=== PATIENT | female | born 1940 | race Caucasian/White ===

== ENCOUNTER → 2017-07-16 | Outpatient (CLI) | payer MEDICARE ==
[~2017-07-16] MED LIST: ALBU18HF INH; BIOCLEANSE PO; DOCU-131 PO; ENOX40SY4 SQ; ESTR1PAT25 TD; GABA100C PO; HYDR-3245 PO; LEVO125T PO; MAG30ORA PO; METH500T97 PO; MULT-484 PO; NAPR-856 PO; NAPR500T4 PO; OMEP-110 PO; ONDA4TAB12 PO; POLY17PO3 OP; TEMA15CA PO; TRAM50TA2 PO; TRAZ100T15 PO; ZOLP-413 PO; fentanyl; prestiq PO
== END | disposition home or self-care (01) ==
LOC: CFH 09:28
PROVIDERS: ATTEND Otolaryngology
DX: J32.3 Chronic sphenoidal sinusitis (principal); J34.89 Other specified disorders of nose and nasal sinuses; J34.2 Deviated nasal septum; J30.1 Allergic rhinitis due to pollen
CPT/HCPCS: 70486

== ENCOUNTER 2017-09-06 11:36 | Emergency (ER) | payer MEDICARE ==
[~2017-09-06] VITALS: Ht 165.1 cm; Wt 66.1 kg
[2017-09-06] MEDS ORDERED: SODIUM CHLORIDE FLUSH 10ML SYR IVF ONE (12:30)
[2017-09-06 12:47] LABS: BASOPHILS # (AUTO) 0.08 x10^3/uL (0-0.1); BASOPHILS % (AUTO) 1 % (0-1); EOSINOPHILS # (AUTO) 0.11 x10^3/uL (0-0.4); EOSINOPHILS % (AUTO) 2 % (1-7); LYMPHOCYTES # (AUTO) 1.39 x10^3/uL (1-3.4); LYMPHOCYTES % (AUTO) 20 % (22-44); MD NO; MEAN CORPUSCULAR HEMOGLOBIN 29.1 pg (27.0-34.8); MEAN CORPUSCULAR VOLUME 88.1 fL (80-100); MEAN PLATELET VOLUME 9.6 fL (7.4-10.4); MONOCYTES # (AUTO) 0.62 x10^3/uL (0.2-0.8); MONOCYTES % (AUTO) 9 % (2-9); NEUTROPHILS # (AUTO) 4.64 x10^3/uL (1.8-6.8); NEUTROPHILS % (AUTO) 68 % (42-75); PLATELET COUNT 199 x10^3/uL (130-400); RED BLOOD COUNT 5.33 x10^6/uL (3.82-5.3); RED CELL DISTRIBUTION WIDTH 13.7 % (9.6-15.2)
[2017-09-06 12:58] LABS: ALBUMIN 3.8 g/dL (3.4-5.0); ANION GAP 7 mmol/L (5-15); CALCIUM 8.9 mg/dL (8.5-10.1); CHLORIDE 105 mmol/L (98-107); CREATININE 0.87 mg/dL (0.55-1.02)
[2017-09-06] MEDS ORDERED: OMNIPAQUE 350 MG/ML, 100ML BOTTLE ONE (13:29)
[2017-09-06 14:58] VITALS: BP 141/79
== END 2017-09-06 15:10 | disposition home or self-care (01) ==
LOC: ED 13:46
DX: R06.00 Dyspnea, unspecified (principal); J32.3 Chronic sphenoidal sinusitis; J32.2 Chronic ethmoidal sinusitis
CPT/HCPCS: 36415; 70491; 71045; 80048; 82040; 85025; 99285; Q9967

== ENCOUNTER → 2018-04-29 | Outpatient (CLI) | payer MEDICARE ==
[~2018-04-29] MED LIST changes: +NAPR-685 PO; -NAPR500T4 PO; +TRAZ-137 PO; -TRAZ100T15 PO
== END | disposition home or self-care (01) ==
LOC: CFH 09:42
PROVIDERS: ATTEND Nurse Practitioner Family
DX: M79.672 Pain in left foot (principal); W18.30XA Fall on same level, unspecified, initial encounter

== ENCOUNTER → 2020-07-18 | Outpatient (CLI) | payer MEDICARE ==
[~2020-07-18] MED LIST changes: +ONDA-89 PO; -ONDA4TAB12 PO; +POLY17PO29 OP; -POLY17PO3 OP; -TRAZ-137 PO; +TRAZ-175 PO
== END | disposition home or self-care (01) ==
LOC: CFH 10:03
PROVIDERS: ATTEND Nurse Practitioner Family
DX: Z12.39 Encounter for other screening for malignant neoplasm of breast (principal); Z12.31 Encounter for screening mammogram for malignant neoplasm of breast
CPT/HCPCS: 76641; 77063; 77067

== ENCOUNTER 2020-11-08 23:31 | Emergency (ER) | payer MEDICARE ==
[~2020-11-08] VITALS: Ht 165.1 cm; Wt 69.8 kg
[~2020-11-08 23:31] MED LIST changes: -HYDR-3245 PO; +HYDR1TAB53 PO; -POLY17PO29 OP; +POLY17PO50 OP
--- NOTE | 2020-11-09 00:39 | NUR ---
PA seeing pt in triage while VS reassessed at this time.
[2020-11-09] MEDS ORDERED: MORPHINE SULFATE 4 MG/ML, 1ML IVPush PRN (01:00)
[2020-11-09] MEDS ORDERED: SODIUM CHLORIDE 0.9% 1,000ML IVBOLUS ONE (01:00)
[2020-11-09] MEDS ORDERED: SODIUM CHLORIDE FLUSH 10ML SYR IVF ONE (01:00)
[2020-11-09] MEDS ORDERED: ONDANSETRON 2MG/ML, 2ML IVPush ONE (01:00)
[2020-11-09 01:23] LABS: BASOPHILS % (AUTO) 1 % (0-1); EOSINOPHILS % (AUTO) 0 % (1-7); LYMPHOCYTES % (AUTO) 9 % (22-44); MEAN CORPUSCULAR HEMOGLOBIN 29.7 pg (27.0-34.8); MEAN CORPUSCULAR HGB CONC 33.2 g/dL (32.4-35.8); MEAN PLATELET VOLUME 9.8 fL (7.4-10.4); MONOCYTES % (AUTO) 3 % (2-9); NEUTROPHILS % (AUTO) 86 % (42-75); PLATELET COUNT 200 x10^3/uL (130-400); RED BLOOD COUNT 5.34 x10^6/uL (3.82-5.3); RED CELL DISTRIBUTION WIDTH 13.8 % (9.6-15.2)
[2020-11-09 01:33] LABS: MD NO
--- NOTE | 2020-11-09 01:33 | NUR ---
Pt c/o 10 RUQ to right flank abd pain with n/v TRIMMER [employer]IN[employer], pt states pain is now improved. Walks to bathroom for urine sample, pt also c/o right eye redness wants eye drops.
[2020-11-09 01:35] LABS: ALANINE AMINOTRANSFERASE 21 U/L (12-78); ALBUMIN 4.3 g/dL (3.4-5.0); ANION GAP 5 mmol/L (5-15); CALCIUM 9.4 mg/dL (8.5-10.1); CHLORIDE 103 mmol/L (98-107); CREATININE 0.86 mg/dL (0.55-1.02)
[2020-11-09 01:40] LABS: ALKALINE PHOSPHATASE 95 U/L (45-117); BILIRUBIN,TOTAL 0.5 mg/dL (0.2-1.0); TOTAL PROTEIN 7.8 g/dL (6.4-8.2); TROPONIN I < 0.015 ng/mL (0.000-0.045)
[2020-11-09] MEDS ORDERED: ONDANSETRON 2MG/ML, 2ML ONE (01:48)
[2020-11-09] MEDS ORDERED: MORPHINE SULFATE 4 MG/ML, 1ML ONE (01:49)
[2020-11-09 01:56] LABS: MICROSCOPIC INDICATED
--- NOTE | 2020-11-09 02:03 | NUR ---
This proposal lead writer wrote previous note, not ROMARIO Chavez.
[2020-11-09] MEDS ORDERED: OMNIPAQUE 350 MG/ML, 100ML BOTTLE ONE (02:14)
--- NOTE | 2020-11-09 02:49 | NUR ---
pt a/ox4, pt reported relief in pain after pain med administration, pt ambulated to the bathroom on her own and was steady and stable on her feet, all needs in reach, call light in reach, side rails up with bed in low position and wheel locks engaged.
[2020-11-09 03:09] VITALS: BP 135/71
--- NOTE | 2020-11-09 03:10 | NUR ---
IV DC CATH INTACT, VSS. PT WITH NO PAIN, GIVEN RX FOR EYE INFECTION AND UTI, PT VERBALIZES UNDERSTANDING OF INSTRUCT AND F/U. TO RETURN TO ER IF WORSE OR CONCERNS.
== END 2020-11-09 03:12 | disposition home or self-care (01) ==
LOC: ED 11-09 00:01
DX: N30.00 Acute cystitis without hematuria (principal); R10.11 Right upper quadrant pain; R11.2 Nausea with vomiting, unspecified; R19.7 Diarrhea, unspecified; I10 Essential (primary) hypertension; Z86.73 Personal history of transient ischemic attack (TIA), and cerebral infarction without residual deficits
CPT/HCPCS: 36415; 74177; 80053; 81001; 83690; 84484; 85025; 87086; 87147; 96361; 96374; 96375; 99285; J2270; J2405; J7030; Q9967